=== PATIENT | female | born 1945 | race Caucasian/White ===

== ENCOUNTER 2022-11-04 12:08 | Emergency (ER) | payer OTHER, SELFPAY ==
[2022-11-04 12:18] VITALS: BP 163/91; PULSE 70; RESP 18; O2SAT 97; BMI 27.5
--- NOTE | 2022-11-04 12:50 | CRLHL7_ITS ---
For Patients: As a result of the Century Cures Act, medical imaging exams and procedure reports are released immediately into your electronic medical record. You may view this report before your referring provider. If you have questions, please contact your health care provider. INDICATION: Fall, pain right anterior chest TECHNIQUE: Chest and right ribs 5 views. COMPARISON: None FINDINGS: Cardiovascular and mediastinum: Heart size and vasculature are normal in caliber and appearance. Mediastinum is within normal limits. Lungs and pleural spaces: Lungs are clear. No sign of infiltrate or mass. No sign of pleural effusion. No pneumothorax. Bones and soft tissues: Detailed oblique images of the right ribs demonstrate no fractures or bone lesions. IMPRESSION: Unremarkable chest and right ribs. Dictated by Dakotah Rosado MD @ 11/04/2022 2:46:58 PM (Electronically Signed)
--- NOTE | 2022-11-04 12:59 | ED.NURSE ---
wounds dressed with bacitracin, band aids and Coban.
--- NOTE | 2022-11-04 13:11 | ED.FALL ---
HPI - Fall General Date Seen: 11/04/22 Chief Complaint: Fall/Minor Trauma Stated Complaint: fell at work Time Seen by Provider: 11/04/22 12:14 Source: patient Mode of arrival: ambulatory Limitations: no limitations History of Present Illness HPI Narrative: Patient is a delightful 77-year-old female who was working at [employer] this morning at approximately 7:30 a.m.. Where she fell forward after catching her foot and bump crack in pavement. She fell injuring her knees bilaterally, and her right elbow, no loss of conscious she did not hit her head, but she also hit her chest she said when she went down. Denies any neck pain, diplopia double vision nausea vomiting, otherwise feels well put some Band-Aids on these areas, on her left knee, and her right elbow, and now is coming in to be seen. No history of anticoagulant use, immunosuppressive therapy, or any other reason that she be more prone to infection. MD complaint: fall Fall from: standing Fall witnessed: yes, by bystander Place fall occurred: work Loss of consciousness: No Prolonged down time: no Symptoms prior to fall: none Context: tripped/slipped Location of injury - extremities: Left: knee and Right: elbow Severity: mild Associated symptoms (after fall): denies Related Data Allergies Allergy/AdvReac Type Severity Reaction Status Date / Time No Known Drug Allergies Allergy Verified 11/04/22 12:17 Review of Systems Status of ROS: Reports: 6 or more systems reviewed and unremarkable except as noted in History and below PFSH PFS Social History Smoking Status: Never smoker Do you use any of these nicotine containing products: None Second hand tobacco smoke exposure: No How often do you have a drink containing alcohol: never How often do you have six or more drinks on one occasion: Never AUDIT-C Alcohol total score: 0 Non-prescribed substance use: denies use service: No Exam Narrative: Exam Narrative: She is seen in room 1, she is delightful in no apparent distress, speaking to me alone normally, oriented x3 GCS 15/15. Pupils are equal round reactive to light, her TMs are normal oropharynx is normal, cranial nerves 3-12 are normal, she is able to move her neck through full range of motion of flexion extension lateral flexion cervical rotation is no C-spine tenderness, tenderness noted over her thoracic spine, or lumbar spine. She does mildly tender over her upper chest on the right side. No evidence of bruising is noted, she has good air entry bilaterally easy respirations no splinting is noted. Heart sounds no clicks murmurs or gallops, abdomen is soft, there is no tenderness to palpation and no organomegaly, pelvis is normal stable to rocking she is able to walk for me normally, her knees bilaterally and legs full extension, her hips and also at her knees care. Full flexion is noted, she has small abrasion noted over her left knee, and right elbow which is nonsuturable. Her elbows have full range of motion of flexion extension supination pronation bilaterally, and her wrists have full range of motion with no tenderness palpation, small abrasion is noted on her left wrist. Const: Vital Signs, click to edit/add: Vital Signs - 24 hr 11/04/22 12:18 11/04/22 13:54 Pulse Rate [Pulse Oximeter] 70 62 Respiratory Rate 18 18 Blood Pressure [Ri t Upper Arm] 163/91 H 141/81 H Pulse Oximetry 97 97 Oxygen Delivery Me thod Room Air Room Air Course Course Hospital Course: Discussed with the patient her son, no evidence of acute abnormality I can see on the chest x-ray, I did offer her to call if the radiologist sees anything other than normal. She accepted this, would like to go home. Vital Signs Vital signs: Initial Vital Signs Temperature Source Temporal Artery Scan 11/04/22 12:18 Pulse Rate 70 11/04/22 12:18 Respiratory Rate 18 11/04/22 12:18 Blood Pressure 163/91 H 11/04/22 12:18 Blood Pressure Mean 115 H 11/04/22 12:18 Blood Pressure Position Supine 11/04/22 12:18 Pulse Oximetry 97 11/04/22 12:18 Oxygen Delivery Method Room Air 11/04/22 12:18 Vital Signs Pulse Rate 70 11/04/22 12:18 Respiratory Rate 18 11/04/22 12:18 Blood Pressure 163/91 H 11/04/22 12:18 Pulse Oximetry 97 11/04/22 12:18 Oxygen Delivery Method Room Air 11/04/22 12:18 Pulse Rate 62 11/04/22 13:54 Respiratory Rate 18 11/04/22 13:54 Blood Pressure 141/81 H 11/04/22 13:54 Pulse Oximetry 97 11/04/22 13:54 Oxygen Delivery Method Room Air 11/04/22 13:54 MDM - Fall MDM Narrative Medical decision making narrative: Asked her what hurts the most, she told me that it was her chest, we will do rib views along with a chest x-ray, the rest of the areas I think if we just cleaned these up will be fine as she seems to be moving around normally, I do not think we need to pursue this is a cardiovascular cause as this sounds like a simple trip. Medical Records Attestation: I reviewed the patient's medical records. Imaging Data Chest x-ray: Attestation: I have reviewed the pertinent imaging results. My impression: No evidence of any acute changes, fractures. Discharge Plan Discharge Clinical Impression: Acute chest wall pain, Knee pain, left, Elbow pain, right, Abrasion, Fall Patient Disposition: Home, Self-Care Condition: Stable Instructions: Fall Prevention for Older Adults (ED), Knee Pain (ED), Chest Wall Pain (ED), Bone Bruise (ED) Additional Instructions: Home rest bacitracin on the wounds, I do not see any evidence on your x-ray of any rib fractures or collapsed lung. I think to more your going to be more sore, but I would encourage you to move as much as possible, Tylenol 1 g p.o. t.i.d. would be very helpful, I tended like this a lot better than ibuprofen in my older adults. Ice like your son said would be helpful. Return here if signs and symptoms of worsening, vomiting, increased pain, headaches. Activity Level: Light activity Follow Up/Referrals: Provider,Not a Local [Primary Care Provider] - Stand Alone Forms: [facility] Info Instructions
[2022-11-04] MEDS: ACETAMINOPHEN 500 MG TABLET 1000 MG PO (13:52)
[2022-11-04 13:54] VITALS: BP 141/81; PULSE 62; RESP 18; O2SAT 97
--- NOTE | 2022-11-04 15:51 | ED.NURSE ---
Patient calls requesting note be faxed to Arsen[employer] Pantoja that she can return to work without restrictions f([phone]). Completed by Dr. Olivares and faxed as requested.
== END 2022-11-04 14:10 | disposition home or self-care (01) ==
PROVIDERS: Emergency Provider Family Medicine
DX: R07.89 Other chest pain (principal); M25.562 Pain in left knee; M25.521 Pain in right elbow; W01.0XXA Fall on same level from slipping, tripping and stumbling without subsequent striking against object, initial encounter; Y99.0 Civilian activity done for income or pay
CPT/HCPCS: 71101; 99283; 99284; A9270